=== PATIENT | male | born 1955 | race Caucasian/White ===

== ENCOUNTER 2019-08-12 06:58 | Emergency (ER) | payer SELFPAY ==
[~2019-08-12] VITALS: Ht 165.1 cm; Wt 63.6 kg
[2019-08-12 07:24] LABS: GLUCOSE,POINT OF CARE 100 MG/DL (70-110)
[2019-08-12] MEDS ORDERED: LORazepam 2 MG/ML VIAL IVP ONE ×2 (08:00→09:15)
[2019-08-12] MEDS ORDERED: SODIUM CHLORIDE 0.9% 1,000 ML IV ONE (08:00)
[2019-08-12 09:31] LABS: MONOCYTES # (AUTO) 0.1 K/uL (0.1-1.0); NEUTROPHILS # (AUTO) 5.7 K/uL (1.8-7.7)
[2019-08-12 09:37] LABS: BASOPHILS % (AUTO) 0.5 % (0.0-2.0); EOSINOPHILS % (AUTO) 0.5 % (1.0-6.0); HEMATOCRIT 40.6 % (41-53); LYMPHOCYTES % (AUTO) 13.9 % (22.0-44.0); MEAN CORPUSCULAR HEMOGLOBIN 27.1 pg (26.0-34.0); MEAN CORPUSCULAR VOLUME 85 fL (80-100); MONOCYTES % (AUTO) 2.1 % (2.0-9.0); RED BLOOD CELL COUNT(AUTO) 4.78 MIL/uL (4.50-5.90); RED CELL DISTRIBUTION WIDTH 15.8 % (11.5-14.5)
[2019-08-12 09:38] LABS: ANION GAP 10 mmol/L (8-16); CARBON DIOXIDE 25 mmol/L (22-29); CHLORIDE 105 mmol/L (98-107); CREATININE 0.81 mg/dL (0.60-1.30); GLOMERULAR FILTR. RATE CALC > 60 mL/min (>60); GLUCOSE,RANDOM 109 mg/dL (70-110); POTASSIUM 3.8 mmol/L (3.5-5.1); SODIUM SERUM 140 mmol/L (136-145); UREA NITROGEN, BLOOD 13 mg/dL (7-18)
[2019-08-12 09:39] LABS: CALCIUM, TOTAL 9.9 mg/dL (8.8-10.5)
[2019-08-12 09:47] LABS: AMMONIA < 10 umol/L (11-32); TROPONIN I < 0.02 ng/mL (0.00-0.05)
[2019-08-12 09:58] LABS: APPEARANCE,URINE CLEAR (CLEAR); BILIRUBIN,URINE NEGATIVE (NEGATIVE); GLUCOSE, URINE (UA) NEGATIVE (NEGATIVE); KETONES,URINE NEGATIVE (NEGATIVE); LEUKOCYTE ESTERASE ,URINE NEGATIVE (NEGATIVE); NITRATE,URINE NEGATIVE (NEGATIVE); OCCULT BLOOD,URINE NEGATIVE (NEGATIVE); PROTEIN,URINE NEGATIVE (NEGATIVE); UROBILINOGEN,URINE 0.2 mg/dL (<=1.0)
[2019-08-12 10:03] LABS: ALANINE AMINOTRANSFERASE 21 U/L (12-78); ALBUMIN 3.5 g/dL (3.4-5.0); ALKALINE PHOSPHATASE 37 U/L (46-116); ASPARTATE AMINOTRANSFERASE 28 U/L (15-37); BILIRUBIN,TOTAL 0.3 mg/dL (0.1-1.0); CREATINE KINASE, TOTAL ONLY 163 U/L (39-308); TOTAL PROTEIN, SERUM 7.9 g/dL (6.4-8.2)
[2019-08-12 10:05] LABS: AMPHET/METH SCREEN,URINE POSITIVE (NEGATIVE); BARBITURATE SCREEN, URINE NEGATIVE (NEGATIVE); BENZODIAZEPINES SCREEN,URINE POSITIVE (NEGATIVE); CANNABINOID SCREEN,URINE NEGATIVE (NEGATIVE); COCAINE SCREEN,URINE NEGATIVE (NEGATIVE); METHADONE SCREEN, URINE NEGATIVE (NEGATIVE); OPIATE SCREEN,URINE POSITIVE (NEGATIVE)
[2019-08-12 10:07] VITALS: BP 136/86
[2019-08-12 10:11] LABS: PHENCYCLIDINE SCREEN,URINE NEGATIVE (NEGATIVE)
[2019-08-12 10:14] LABS: B-TYPE NATRIURETIC PEPTIDE 52 pg/mL (0-100)
[2019-08-12 10:35] LABS: PLATELET COUNT (AUTO) 230 K/uL (150-450)
[2019-08-12 10:47] LABS: INR 1.1 (0.9-1.1); PROTHROMBIN TIME 10.7 SEC (9.4-11.6)
[2019-08-12] MEDS ORDERED: HALOPERIDOL LACTATE 5 MG/ML VIAL IM ONE (11:30)
== END 2019-08-12 14:47 | disposition home or self-care (01) ==
LOC: EMS 06:58
DX: S01.81XA Laceration without foreign body of other part of head, initial encounter (principal); G93.40 Encephalopathy, unspecified; F15.10 Other stimulant abuse, uncomplicated; W19.XXXA Unspecified fall, initial encounter; Y93.89 Activity, other specified; Y92.89 Other specified places as the place of occurrence of the external cause; Y99.8 Other external cause status
CPT/HCPCS: 36415; 70450; 71045; 72125; 80053; 80307; 81003; 82140; 82550; 82962; 83605; 83880; 84484; 85025; 85610; 85730; 87040; 93005; 96361; 96372; 96374; 96375; 99285; G0480; J1630; J2060; J7030